=== PATIENT | female | born 1990 | race Caucasian/White ===

== ENCOUNTER 2017-12-12 15:43 | Outpatient (CLI) | END 2017-12-12 17:40 | disposition home or self-care (01) ==

== ENCOUNTER 2018-01-23 04:00 | Inpatient (IN) | END 2018-01-24 22:00 | disposition home or self-care (01) | DRG 833 ==

== ENCOUNTER 2018-03-04 14:03 | Inpatient (IN) | payer OTHER ==
[~2018-03-04] VITALS: Ht 165.1 cm; Wt 103.0 kg
[~2018-03-04 14:03] MED LIST: PREN1TAB79 PO
[2018-03-04 14:32] VITALS: BP 105/60; PULSE 90; RESP 18; Ht 165.1 cm; Wt 103.0 kg
--- NOTE | 2018-03-04 16:23 | TRIAGE ---
OB Triage Datetime Report Generated by CPN: 03/04/2018 16:23 Datetime: 03/04/2018 15:00 Stage of : OB Triage Maternal Assessment Level of Consciousness: Fully Conscious Labor Evaluation Frequency: 3-7 Monitor Mode: External Duration (sec)2399: 50-110 Quality: Moderate Resting Tone [place]: Relaxed Heart Rate FHR Baseline Rate: 150 Monitor Mode: External US Variability: Moderate 6-25 bpm Accelerations: 15X15 Decelerations: Late Category: Category II Pain Assessment Pain Scale: 6 Pain Presence: Intermittent Pain Type: Cramping Pain Goal: 3 Vaginal Bleeding: None Datetime: 03/04/2018 14:55 Vaginal Exam Dilatation (cms): 2.0 Effacement (%): 60 Station: -2 Exam By: NANY Vaginal Bleeding: None Pool: Negative Nitrazine: Negative Cervix, Consistency: Soft Cervix, Position: Midposition Datetime: 03/04/2018 14:24 Assessment Type: Triage Maternal Assessment Level of Consciousness: Fully Conscious DTR's/Clonus: DTRs 2+; No Clonus Headache: Denies Blurred Vision: No Respiratory Effort: Unlabored; Regular Rhythm; Equal Expansion Breath Sounds, Left: Clear and Equal Breath Sounds, Right: Clear and Equal Nausea/Vomiting: Denies RUQ Epigastric Pain: Denies Lower Extremities Edema: None Degree: None Upper Extremities Edema: None Degree: None Facial Edema: None Fall Risk Assessment History of Falling: (0) No Secondary Diagnosis: (0) No Ambulatory Aid: (0) Bedrest/Nurse Assist IV Therapy: (0) No Gait: (0) Normal/Bedrest/Immobile Mental Status: (0) Oriented to Own Ability Fall Score: 0 Fall Risk Score Definition: No Risk: No action required Datetime: 03/04/2018 14:23 Time of Arrival: 03/04/2018 13:55 EGA: 38.1 Arrived By: Ambulatory Arrived From: Dr. Donohue Chief Complaint: PT. SENT FROM CLINIC FOR EVAL. OF LABOR Movement: Present Contractions: Irregular Rupture of Membranes: Unsure Vaginal Bleeding: None Vaginal Discharge: Present Recent Sexual Intercouse: Denies Abdominal Trauma: Not Applicable Patient Complaints: Contractions; Cramping; Back Pain Additional Patient Complaints: FBS THIS AM 98MG/DL PER PT. Time Provider Notified: 03/04/2018 16:18 Provider Notified: HADCORBIN Initial Plan: BPP/EFW/SVE/ROM PLUS Datetime: 03/04/2018 14:21 Monitor Mode: External Monitor Mode: External US Datetime: 02/09/2018 21:31 Fall Score: 0 Fall Risk Score Definition: No Risk: No action required Datetime: 02/09/2018 21:22 EGA: 34.6 Datetime: 01/24/2018 07:42 Fall Score: 0 Fall Risk Score Definition: No Risk: No action required Datetime: 01/23/2018 19:23 Fall Score: 0 Fall Risk Score Definition: No Risk: No action required Datetime: 01/23/2018 08:11 Fall Score: 20 Fall Risk Score Definition: No Risk: No action required Datetime: 01/23/2018 04:45 Fall Score: 0 Fall Risk Score Definition: No Risk: No action required Datetime: 01/22/2018 18:51 Fall Score: 0 Fall Risk Score Definition: No Risk: No action required Datetime: 01/22/2018 18:50 EGA: 32.2 Datetime: 12/12/2017 15:58 Fall Score: 0 Fall Risk Score Definition: No Risk: No action required Datetime: 12/12/2017 15:57 EGA: 26.3
[2018-03-04] MEDS ORDERED: CARBOPROST 250 MCG INJ IM PRN (17:00)
[2018-03-04] MEDS ORDERED: MISOPROSTOL 200 MCG TAB PR PRN (17:00)
[2018-03-04] MEDS ORDERED: OXYTOCIN 30 UNITS/LR 500 ML IV SCH ×2 (17:00)
[2018-03-04] MEDS ORDERED: OXYTOCIN 30 UNITS/LR 500 ML IV PRN (17:00)
[2018-03-04] MEDS ORDERED: METHYLERGONOVINE 0.2 MG INJ IM PRN (17:00)
[2018-03-04] MEDS ORDERED: IBUPROFEN 600 MG TAB PO PRN (17:00)
[2018-03-04] MEDS ORDERED: BUTORPHANOL 2 MG INJ IV PRN (17:00)
[2018-03-04] MEDS ORDERED: LIDOCAINE 1% (MPF) 30 ML INJ INJ PRN (17:00)
[2018-03-04] MEDS: LACTATED RINGER'S 1,000 ML IV SCH ×2 (17:18→20:27)
[2018-03-04] MEDS ORDERED: DEXTROSE 5%-LR 1,000 ML IV PRN (20:30)
--- NOTE | 2018-03-04 20:35 | PREAC ---
Date/Time of Note Date/Time of Note DATE: 03/04/18 TIME: 20:34 Anesthesia Eval and Record Evaluation Time Pre-Procedure Interview DATE: 03/04/18 TIME: 20:34 Age 27 Sex female NPO: 8 hrs Preoperative diagnosis Planned procedure Labor Epidural Past Medical History Past Medical History: Includes GI: Morbid obesity Surgery & Anesthesia Issues No known issue Meds Anticoagulation: No Beta Bree within 24 hr: No Reason Beta Bree not given: Pt. not on B-Bree Reported Medications Vit W-Ca,Fe,FA(<1 mg) ( Vitamins) 1 Each Tablet, 1 EACH PO, TAB 12/12/17 Current Medications Lactated Ringer's 1,000 ml @ 125 mls/hr Q8H IV Last administered on 03/04/18at 20:27; Admin Dose 125 MLS/HR; Start 03/04/18 at 16:31 Butorphanol Tartrate (Stadol) 2 mg Q2H PRN IV PAIN; Start 03/04/18 at 17:00 Lidocaine (Xylocaine 1% (Mpf)) 30 ml ONCE PRN INJ EPISIOTOMY; Start 03/04/18 at 17:00 Oxytocin/Lactated Ringer's 500 ml @ 500 mls/hr ONCE POST IV ; Start 03/04/18 at 17:00 Oxytocin/Lactated Ringer's 500 ml @ 125 mls/hr POST IV ; Start 03/04/18 at 17:00 Ibuprofen (Motrin) 600 mg ONCE PRN PO PAIN LEVEL 1-5; Start 03/04/18 at 17:00 Oxytocin/Lactated Ringer's 500 ml @ 0 mls/hr ONCE PRN IV VAGINAL BLEEDING; Start 03/04/18 at 17:00 Methylergonovine Maleate (Methergine) 0.2 mg ONCE PRN IM VAGINAL BLEEDING; Start 03/04/18 at 17:00 Carboprost Tromethamine (Hemabate) 250 mcg ONCE PRN IM VAGINAL BLEEDING; Start 03/04/18 at 17:00 Misoprostol (Cytotec) 1,000 mcg ONCE PRN [place] VAGINAL BLEEDING; Start 03/04/18 at 17:00 Dextrose/Lactated Ringer's 1,000 ml @ 125 mls/hr Q8H PRN IV BLOOD SUGAR LESS THAN 80 ; Start 03/04/18 at 20:30 Meds reviewed: Yes Allergies Coded Allergies: No Known Allergy (Unverified , 02/09/18) Allergies Reviewed: Yes Labs/Studies Labs Reviewed: Reviewed by anesthesiologist Result Diagram: 03/04/18 1600 Laboratory Tests 03/04/18 16:00 Blood Bank Test 03/04/18 16:00 Antibody Screen NEGATIVE Blood Type O POSITIVE Rh Immune Globulin Candidate NO test: Positive Pre-procedure Exam Last vitals Vital Signs Date Temp Pulse Resp B/P (MAP) Pulse Ox O2 O2 Flow FiO2 Time Delivery Rate 03/04/18 98.7 90 18 105/60 Room Air 14:32 (75) Airway: Adequate mouth opening, Adequate thyromental dist Mallampati: Mallampati II Teeth: Normal Lung: Normal Heart: Normal ASA Physical Status ASA physical status: 2 Emergency: None Planned Anesthetic Neuraxial: Epidural Pre-operative Attestations Prior to commencing anesthesia and surgery, the patient was re-evaluated, there was verification of: *The patient's identity *The results of appropriate recent lab work and preoperative vital signs *The above evaluation not changing prior to induction *Anesthetic plan, risk benefits, alternative and complications discussed with patient/family; questions answered; patient/family understands, accepts and wishes to proceed. DAWOOD POWER Mar 04, 2018 20:35
[2018-03-04] MEDS ORDERED: ONDANSETRON 4 MG INJ IV PRN (21:00)
[2018-03-04] MEDS ORDERED: DIPHENHYDRAMINE 50 MG INJ IV PRN (21:00)
[2018-03-04] MEDS ORDERED: FENTAnyl 2MCG/ML-ROPIV 0.2% 100 ML BAG EPI SCH (21:00)
[2018-03-04] MEDS ORDERED: KETOROLAC 30 MG INJ IV PRN (21:00)
[2018-03-04] MEDS ORDERED: NALOXONE (0.4 MG/ML) INJ IV PRN (21:00)
[2018-03-04] MEDS ORDERED: HYDROmorphONE 0.5 MG/0.5 ML SYG IV PRN ×2 (21:00)
--- NOTE | 2018-03-05 00:14 | PAC ---
Date/Time of Note Date/Time of Note DATE: 03/05/18 TIME: 00:14 Post-Anesthesia Notes Post-Anesthesia Note Last documented vital signs Vital Signs Date Temp Pulse Resp B/P (MAP) Pulse Ox O2 O2 Flow FiO2 Time Delivery Rate 03/04/18 98.7 90 18 105/60 Room Air 14:32 (75) Activity: WNL Respiratory function: WNL Cardiovascular function: WNL Mental status: Baseline Pain reasonably controlled: Yes Hydration appropriate: Yes Nausea/Vomiting absent: Yes DAWOOD POWER Mar 05, 2018 00:14
[2018-03-05] MEDS: LACTATED RINGER'S 1,000 ML IV SCH ×2 (03:36→08:06)
[2018-03-05] MEDS ORDERED: OXYTOCIN 30 UNITS/LR 500 ML IV SCH (09:00)
[2018-03-05] MEDS ORDERED: MINERAL OIL LIGHT 10 ML VIAL TOP ONE (11:30)
[2018-03-05 14:00] VITALS: BP 112/51; PULSE 83; RESP 18
[2018-03-05] MEDS ORDERED: WITCH HAZEL/GLYCERIN PAD PR PRN (15:00)
[2018-03-05] MEDS ORDERED: DIBUCAINE 1% 30 GM OINT TOP PRN (15:00)
[2018-03-05] MEDS ORDERED: ZOLPIDEM 5 MG TAB PO PRN (15:00)
[2018-03-05] MEDS ORDERED: MISOPROSTOL 200 MCG TAB PR PRN (15:00)
[2018-03-05] MEDS ORDERED: DIPHENHYDRAMINE 50 MG INJ IV PRN (15:00)
[2018-03-05] MEDS ORDERED: LANOLIN HPA 1 PKT TOP PRN (15:00)
[2018-03-05] MEDS ORDERED: CARBOPROST 250 MCG INJ IM PRN (15:00)
[2018-03-05] MEDS ORDERED: MAGNESIUM HYDROXIDE 30ML CUP PO PRN (15:00)
[2018-03-05] MEDS ORDERED: OXYTOCIN 30 UNITS/LR 500 ML IV PRN (15:00)
[2018-03-05] MEDS ORDERED: METHYLERGONOVINE 0.2 MG INJ IM PRN (15:00)
[2018-03-05] MEDS ORDERED: ONDANSETRON 4 MG INJ IV PRN (15:00)
[2018-03-05] MEDS ORDERED: ACETAMINOPHEN 325 MG TAB PO PRN (15:00)
[2018-03-05] MEDS ORDERED: BENZOCAINE 20% 56 ML SPRAY TOP PRN (15:00)
[2018-03-05] MEDS: DEXTROSE 5%-LR 1,000 ML IV SCH ×2 (15:57→22:55)
[2018-03-05] MEDS: LACTATED RINGER'S 1,000 ML IV* SCH ×2 (15:58→20:42)
[2018-03-05 16:19] VITALS: BP 113/54; PULSE 77; RESP 17
[2018-03-05] MEDS: IBUPROFEN 600 MG TAB PO SCH ×2 (17:59→23:52)
[2018-03-05 20:20] VITALS: BP 102/59; PULSE 78; RESP 19
[2018-03-05] MEDS: SENNA/DOCUSATE NA (8.6MG/50MG) TAB PO PRN (20:31)
--- NOTE | 2018-03-05 22:25 | HP ---
Date/Time of Note Date/Time of Note DATE: 03/05/18 TIME: 22:12 OB - History Hx of Present Free Text/Dictation Late entry note. Patient seen on 03/05/2018 at 8 AM 27-year-old 011 with A1 gestational diabetes and single intrauterine at 38 weeks and 2 days with admitted for induction of labor. She was seen in triage last night for NST, had late deceleration. She was admitted for close monitoring and induction of labor if no further deceleration noted. She states good movement. She denies nausea, vomiting, shortness of breath, chest pain, headache, visual changes, vaginal bleeding or LOF. Chief Complaint: Abdominal cramping Last Menstrual Period: Jun 10, 2017 Estimated Due Date: Mar 17, 2018 : 3 Para: 1 Spontaneous : 1 Therapeutic : 0 Care: Good Care Ultrasounds: Normal mid trimester US Obstetrical Complications: None Medical Complications: None Past Family/Social History * Past Medical, Surgical, Family and Obstetric Histories reviewed from chart. Blood Type: O+ Rubella: immune RPR/VDRL: Negative GBS Status: Negative HBsAG: Negative OB Admission Exam Vital Signs Vital Signs Vital Signs Date Temp Pulse Resp B/P (MAP) Pulse Ox O2 O2 Flow FiO2 Time Delivery Rate 03/05/18 98.6 77 17 113/54 Room Air 16:19 (73) Physical Exam HEENT: WNL Heart: Rhythm Normal Lungs: Clear Abdomen: WNL Extremities: Normal Cervical Dilatation: 2cm Effacement: 50% Station: -2 Membranes: Intact Heart Rate: 140's Accelerations: Accelerations Present Decelerations: No Decelerations Varibility: Moderate Contractions on Admission: 6-10 Minutes Apart Intensity: Mild Last 72 hourBlood Glucose Bedside Glucose - 72 Hours Test 03/04/18 19:34 03/04/18 23:39 03/05/18 03:34 03/05/18 07:32 Bedside 76 92 87 82 Glucose mg/dL (70-220) mg/dL (70-220) mg/dL (70-220) mg/dL (70-220) Test 03/05/18 09:42 Bedside 82 Glucose mg/dL (70-220) Last 72 hours Lab Results CBC & BMP 03/04/18 16:00 OB Assessment/Plan Other plan: 27-year-old with A1 gestational diabetes at 38 weeks and 2 days - FHR: No sign of metabolic acidosis- Category I - Continuous EFM, toco - CBC, blood type and screen - Please see the orders - O+/Rubella: Immune - GBS: negative 2) A1 gestational diabetes: Check blood glucose every 4 hours in latent phase and every 2 hours in active phase. Admission, procedures, expectations, risks and possible complications have been discussed in detail with the patient. Risk of vaginal delivery including but not limited to bleeding, infection, cervical laceration, placental retention, injury to fetus, blood transfusion, blood transfusion related infection, risk of anesthesia, adhesion, cervical laceration, episiotomy/laceration, possible delivery with risk of bleeding, infection, injury to other organs (bowel, bladder, ureter, vessels, nerves), injury to fetus, blood transfusion, blood transfusion related infection, risk of anesthesia, scar and hernia formation, needs for future , removal of uterus or any other indicated surgery discussed with the patient. She expressed understanding and repeats the risks. All of her questions were answered. She signed the informed consent. PHYSICIAN'S VERIFICATION OF INFORMED CONSENT The patient was counseled regarding the procedure, its indications, risks, potential complications and alternatives and any questions were answered. Consent was obtained. PLANNED PROCEDURE/TREATMENT: Vaginal delivery, episiotomy, repair of laceration possible delivery CODY ROSSI Mar 05, 2018 22:23
--- NOTE | 2018-03-05 22:28 | LDN ---
Date/Time of Note Date/Time of Note DATE: 03/05/18 TIME: 22:25 Delivery Summary 27-year-old with single intrauterine at 38 weeks and 2 days delivered a viable female in cephalic presentation. Nose and mouth suction. Rest of body delivered. Cord clamped and cut. Baby given to the nurse. Placenta delivered spontaneously with three-vessel cord. Patient tolerated procedure well. Weight 4320 g - 9 pounds 8 ounces Time of delivery 11:44 9 at 1 minutes and 9 at 5 minutes. EBL: 250 mL Weeks of Gestation 38 weeks and 2 days Placenta Delivered: Spontaneously Meconium: none Estimated blood loss: 250 Sponge & Needle done & correct: Yes All needle counts correct: Yes Any foreign bodies felt in the: No Infant Delivery Information Sex Sex: female Apgars 1 Minute: 9 5 Minute: 9 10 Minute: 10 Suctioning Nose & mouth suctioned at franco: Yes Umbilical Cord Umbilical cord with: 3 Vessels Cord Blood was obtained: Yes Mother & Baby Disposition Disposition Mom & Baby to Maternity; Good: Yes CODY ROSSI Mar 05, 2018 22:28
[2018-03-05 23:40] VITALS: BP 99/58; PULSE 74; RESP 18
[2018-03-05] MEDS: OXYCODONE/ASPIRIN (4.88/325) TAB PO PRN (23:50)
[2018-03-06] MEDS: LACTATED RINGER'S 1,000 ML IV SCH (00:31)
[2018-03-06 04:00] VITALS: BP 107/62; PULSE 72; RESP 18
[2018-03-06] MEDS: IBUPROFEN 600 MG TAB PO SCH ×3 (05:28→17:30)
[2018-03-06 08:00] VITALS: BP 93/51; PULSE 66; RESP 16
[2018-03-06] MEDS: SENNA/DOCUSATE NA (8.6MG/50MG) TAB PO PRN (08:20)
--- NOTE | 2018-03-06 14:01 | PN ---
Date/Time of Note Date/Time of Note DATE: 03/06/18 TIME: 13:58 OB Subjective Subjective Subjective Reports decreased vaginal bleeding. Denies any complaint except slight soreness in the nipples. Breast-feeding and bottlefeeding. Denies any dizziness or lightheadedness. Ambulating. OB Objective Objective Objective General appearance: Alert and oriented x4 does not appear to be in any acute distress Abdomen: Soft, fundus palpable and firm and palpable below the umbilicus and nontender Breast: No evidence of engorgement, mastitis or fissure Extremities: No calf tenderness, no click no cord palpable Laboratory Tests Test 03/06/18 07:29 White Blood Count 8.6 Red Blood Count 3.59 L Hemoglobin 10.1 L Hematocrit 30.6 L Mean Corpuscular Volume 85.2 Mean Corpuscular Hemoglobin 28.1 L Mean Corpuscular Hemoglobin Concent 33.0 Red Cell Distribution Width 12.9 Platelet Count 187 Mean Platelet Volume 11.9 H Immature Granulocytes % 1.500 H Neutrophils % 69.4 Lymphocytes % 16.2 Monocytes % 11.5 H Eosinophils % 1.2 Basophils % 0.2 Nucleated Red Blood Cells % 0.0 Immature Granulocytes # 0.130 H Neutrophils # 6.0 Lymphocytes # 1.4 Monocytes # 1.0 H Eosinophils # 0.1 Basophils # 0.0 Nucleated Red Blood Cells # 0.0 OB Assessment/Plan Other Assessment: Status post day #1 GDM A1 diet-controlled Mild anemia, asymptomatic Routine care Anticipate DC home tomorrow Discussed with the patient about future risk of diabetes due to gestational diabetes. Encouraged to continue breast-feeding to help with losing weight and risk of future diabetes Patient understand that she need to proceed with 3-hour glucose tolerance test at 6 weeks and yearly TANJA HART MD Mar 06, 2018 14:01
[2018-03-06 15:50] VITALS: BP 103/58; PULSE 87; RESP 18
[2018-03-06 20:05] VITALS: BP 112/60; PULSE 69; RESP 18
[2018-03-06] MEDS: OXYCODONE/ASPIRIN (4.88/325) TAB PO PRN (22:39)
[2018-03-07] MEDS: IBUPROFEN 600 MG TAB PO SCH ×4 (00:12→17:57)
[2018-03-07 04:15] VITALS: BP 101/58; PULSE 80; RESP 19
[2018-03-07 07:35] VITALS: BP 104/61; PULSE 76; RESP 18
[2018-03-07] MEDS ORDERED: MEASLES,MUMPS,RUBELLA VACCINE INJ SC* ONE (09:00)
[2018-03-07] MEDS ORDERED: DIPHTH/TET/ACEL PERTUSS (ADULT) 0.5 ML VIAL IM* ONE (09:00)
[2018-03-07 15:30] VITALS: BP 98/55; PULSE 71; RESP 19
[2018-03-07] MEDS: OXYCODONE/ASPIRIN (4.88/325) TAB PO PRN (15:30)
--- NOTE | 2018-03-07 17:14 | DS ---
Date/Time of Note Date/Time of Note DATE: 03/07/18 TIME: 17:12 Obstetrical Discharge Record Final Diagnosis Final Diagnosis: Term delivered Vaginal Delivery Obstetrical Delivery: Spontaneous, Laceration, Repaired Complications Augmentation: Yes Induction: No Rupture of Membranes: No Condition on Discharge Physical Assessment Last Vitals: vss afebrile baby is under bili light Voiding: Yes Bowel Movement: No Breast: Soft, non-tender Fundus: Firm Abdomen and Incision: n/a Episiotomy: n/a Calf Tenderness: No Patient Condition: Stable ANDREW SILVA MD Mar 07, 2018 17:14
--- NOTE | 2018-03-07 17:15 | PD.PPDC ---
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
== END 2018-03-07 18:59 | disposition home or self-care (01) | DRG 807 ==
LOC: OBT 14:03 → L-D 14:04 → OBT 16:20 → PP1 03-05 13:49
PROVIDERS: ADMIT Obstetrics & Gynecology; ATTEND Obstetrics & Gynecology
PROC: 10E0XZZ Delivery of Products of Conception, External Approach (ICD-10-PCS; principal; 2018-03-05)
DX: O24.420 Gestational diabetes mellitus in childbirth, diet controlled (principal); O99.02 Anemia complicating childbirth; D64.9 Anemia, unspecified; O99.214 Obesity complicating childbirth; E66.9 Obesity, unspecified; Z37.0 Single live birth; Z3A.38 38 weeks gestation of pregnancy
CPT/HCPCS: 62319; 76815; 76818; 82962; 84112; 85025; 85610; 85730; 86592; 86703; 86850; 86900; 86901; 87340; 99464; G0463; J2210; J2590; J3010; J7120; J7121